=== PATIENT | female | born 1950 | race African-American/Black ===

== ENCOUNTER 2016-12-28 08:29 | Emergency (ER) | payer MEDICARE, MEDICAID ==
[~2016-12-28] VITALS: Ht 162.6 cm; Wt 84.0 kg
[~2016-12-28 08:29] MED LIST: IBUP-1636 PO; NAPR220C15 PO
[2016-12-28] MEDS ORDERED: CARI350T PO (08:39)
[2016-12-28] MEDS ORDERED: ONDANSETRON HCL 4MG/2ML VIAL IV ONE (09:30)
[2016-12-28] MEDS ORDERED: MORPHINE SULFATE 4 MG/ML CPJ (NOT FOR IM USE) IV ONE (09:30)
[2016-12-28] MEDS ORDERED: METHYLPREDNISOLONE SOD SUCC 125 MG/2 ML VIAL IV ONE (09:30)
[2016-12-28 11:10] VITALS: BP 129/70
== END 2016-12-28 11:24 | disposition home or self-care (01) ==
LOC: ER 09:02
DX: M06.9 Rheumatoid arthritis, unspecified (principal); R03.0 Elevated blood-pressure reading, without diagnosis of hypertension
CPT/HCPCS: 73030; 96374; 96375; 99284; J2270; J2405; J2930

== ENCOUNTER 2017-03-05 18:15 | Emergency (ER) | payer MEDICARE, MEDICAID ==
[~2017-03-05] VITALS: Ht 162.6 cm; Wt 83.0 kg
[~2017-03-05 18:15] MED LIST changes: +CARI350T PO
[2017-03-05] MEDS ORDERED: KETOROLAC 60MG/2ML VIAL IM ONE (23:30)
[2017-03-06 00:07] VITALS: BP 123/70
== END 2017-03-06 00:30 | disposition home or self-care (01) ==
LOC: ER 20:00
DX: M54.32 Sciatica, left side (principal); M19.90 Unspecified osteoarthritis, unspecified site; Z87.891 Personal history of nicotine dependence
CPT/HCPCS: 96372; 99283; J1885

== ENCOUNTER 2017-04-16 15:02 | Emergency (ER) | payer MEDICARE, OTHER ==
[~2017-04-16] VITALS: Ht 162.6 cm; Wt 86.0 kg
[2017-04-16 18:34] LABS: BASOPHILS % 0.7 % (0.0-2.0); EOSINOPHILS % 3.1 % (0.0-5.0); HEMATOCRIT. 35.3 % (36.0-48.0); HEMOGLOBIN. 11.7 g/dL (12.0-16.0); LYMPHOCYTES % 27.2 % (20.0-50.0); MEAN CORPUSCULAR HEMOGLOBIN 29.1 pg (28.0-32.0); MEAN CORPUSCULAR VOLUME 87.5 fL (81.0-99.0); MEAN PLATELET VOLUME 8.9 fl (7.4-10.4); MONOCYTES % 7.3 % (2.0-8.0); NEUTROPHILS % 61.7 % (40.0-76.0); PLATELET 199 x1000/uL (130-400); RED BLOOD CELL COUNT 4.03 mill/uL (4.2-5.4); RED CELL DISTRIBUTION WIDTH 15.7 % (11.6-14.6)
[2017-04-16 18:44] LABS: CARBON DIOXIDE 28 mEq/L (21-32); CHLORIDE 106 mEq/L (98-107)
[2017-04-16 18:57] LABS: CLARITY URINE CLEAR (CLEAR); COLOR URINE YELLOW (YELLOW); GLUCOSE URINE NEGATIVE (NEGATIVE); KETONES URINE NEGATIVE (NEGATIVE); LEUKOCYTE ESTERASE URINE TRACE (NEGATIVE); NITRITE URINE NEGATIVE (NEGATIVE); OCCULT BLOOD URINE NEGATIVE (NEGATIVE); PROTEIN URINE NEGATIVE (NEGATIVE); SPECIFIC GRAVITY URINE 1.007 (1.005-1.030); UROBILINOGEN URINE 0.2 E.U./dL (0.2-1.0)
[2017-04-16 19:06] LABS: *AMPHETAMINES SCREEN URINE NEGATIVE (NEGATIVE); *BARBITURATES SCREEN URINE NEGATIVE (NEGATIVE); *BENZODIAZEPINES SCREEN URINE NEGATIVE (NEGATIVE); *COCAINE SCREEN URINE NEGATIVE (NEGATIVE); CANNABINOID URINE SCREEN NEGATIVE (NEGATIVE); METHADONE URINE SCREEN NEGATIVE (NEGATIVE); OPIATES URINE SCREEN NEGATIVE (NEGATIVE); PHENCYCLIDINE URINE SCREEN NEGATIVE (NEGATIVE)
[2017-04-16 21:57] VITALS: BP 133/70
== END 2017-04-16 22:00 | disposition home or self-care (01) ==
LOC: ER 15:02
DX: R10.84 Generalized abdominal pain (principal); Z90.710 Acquired absence of both cervix and uterus; Z98.890 Other specified postprocedural states
CPT/HCPCS: 36415; 74176; 80048; 80076; 80305; 81001; 85025; 99285

== ENCOUNTER 2020-03-08 10:33 | Emergency (ER) | payer MEDICAID, MEDICARE ==
[~2020-03-08] VITALS: Ht 162.6 cm; Wt 82.0 kg
[~2020-03-08 10:33] MED LIST changes: -CARI350T PO; +GABA-290 PO; +HYDR-4009 PO; -IBUP-1636 PO; +LINA145C PO; -NAPR220C15 PO
[2020-03-08] MEDS ORDERED: ACETAMINOPHEN 325MG TABLET PO STA (11:33)
[2020-03-08] MEDS ORDERED: SODIUM CHLORIDE 0.9% 1,000 ML IV ONE (11:33)
[2020-03-08 11:45] LABS: CHLORIDE 110 mEq/L (98-107)
[2020-03-08 11:49] LABS: BASOPHILS % 0.5 % (0.0-2.0); EOSINOPHILS % 3.1 % (0.0-5.0); HEMATOCRIT. 34.8 % (36.0-48.0); HEMOGLOBIN. 11.4 g/dL (12.0-16.0); LYMPHOCYTES % 30.1 % (20.0-50.0); MEAN CORPUSCULAR HEMOGLOBIN 29.2 pg (28.0-32.0); MEAN CORPUSCULAR VOLUME 89.3 fL (81.0-99.0); MEAN PLATELET VOLUME 8.7 fl (7.4-10.4); MONOCYTES % 6.6 % (2.0-8.0); NEUTROPHILS % 59.7 % (40.0-76.0); PLATELET 234 x1000/uL (130-400); RED CELL DISTRIBUTION WIDTH 13.6 % (11.6-14.6)
[2020-03-08 13:26] VITALS: BP 136/77
== END 2020-03-08 13:29 | disposition home or self-care (01) ==
LOC: ER 10:33
DX: R51 Headache (principal); H53.8 Other visual disturbances; M19.90 Unspecified osteoarthritis, unspecified site; I10 Essential (primary) hypertension; W01.0XXA Fall on same level from slipping, tripping and stumbling without subsequent striking against object, initial encounter; Y93.84 Activity, sleeping; Y92.9 Unspecified place or not applicable; Z90.710 Acquired absence of both cervix and uterus; Z98.890 Other specified postprocedural states
CPT/HCPCS: 36415; 70450; 73502; 80053; 85025; 93005; 96360; 96361; 99285; J7030

== ENCOUNTER 2020-03-17 11:43 | Emergency (ER) | payer MEDICARE ==
[~2020-03-17] VITALS: Ht 162.6 cm; Wt 85.0 kg
[2020-03-17] MEDS ORDERED: MORPHINE SULFATE 4 MG/ML CPJ (NOT FOR IM USE) IV STA (12:17)
[2020-03-17] MEDS ORDERED: ONDANSETRON HCL 4MG/2ML INJ IV STA (12:17)
[2020-03-17 13:00] LABS: BASOPHILS % 0.4 % (0.0-2.0); EOSINOPHILS % 1.9 % (0.0-5.0); HEMATOCRIT. 34.5 % (36.0-48.0); HEMOGLOBIN. 11.2 g/dL (12.0-16.0); LYMPHOCYTES % 30.6 % (20.0-50.0); MEAN PLATELET VOLUME 8.9 fl (7.4-10.4); MONOCYTES % 7.2 % (2.0-8.0); NEUTROPHILS % 59.9 % (40.0-76.0); PLATELET 218 x1000/uL (130-400); RED BLOOD CELL COUNT 3.88 mill/uL (4.2-5.4); RED CELL DISTRIBUTION WIDTH 13.4 % (11.6-14.6)
[2020-03-17 13:06] LABS: CLARITY URINE CLEAR (CLEAR); COLOR URINE YELLOW (YELLOW); KETONES URINE NEGATIVE (NEGATIVE); LEUKOCYTE ESTERASE URINE NEGATIVE (NEGATIVE); NITRITE URINE NEGATIVE (NEGATIVE); OCCULT BLOOD URINE NEGATIVE (NEGATIVE); PH URINE 6.5 (4.5-8.0); PROTEIN URINE NEGATIVE (NEGATIVE); SPECIFIC GRAVITY URINE 1.007 (1.005-1.030); UROBILINOGEN URINE 0.2 E.U./dL (0.2-1.0)
[2020-03-17 13:09] LABS: PROTHROMBIN TIME 10.6 sec (9.6-11.0)
[2020-03-17 13:11] LABS: CHLORIDE 110 mEq/L (98-107)
[2020-03-17 14:05] VITALS: BP 146/75
== END 2020-03-17 14:05 | disposition home or self-care (01) ==
LOC: ER 11:43
DX: M19.90 Unspecified osteoarthritis, unspecified site (principal); R10.9 Unspecified abdominal pain
CPT/HCPCS: 36415; 74176; 80053; 81003; 83690; 85025; 85610; 93005; 96374; 96375; 99285; J2270; J2405

== ENCOUNTER 2020-03-18 13:07 | Emergency (ER) | payer MEDICARE ==
[~2020-03-18] VITALS: Ht 162.6 cm; Wt 73.0 kg
[2020-03-18 14:44] VITALS: BP 178/88
== END 2020-03-18 14:45 | disposition home or self-care (01) ==
LOC: ER 13:07
DX: M25.542 Pain in joints of left hand (principal); M06.9 Rheumatoid arthritis, unspecified; I10 Essential (primary) hypertension; Z90.710 Acquired absence of both cervix and uterus; Z98.890 Other specified postprocedural states
CPT/HCPCS: 99283

== ENCOUNTER 2020-04-06 13:33 | Emergency (ER) | payer MEDICARE ==
[~2020-04-06] VITALS: Ht 162.6 cm; Wt 90.0 kg
[2020-04-06 14:40] VITALS: BP 143/67
[2020-04-06] MEDS ORDERED: KETOROLAC 30MG/ML VIAL IM ONE (15:30)
== END 2020-04-06 17:10 | disposition home or self-care (01) ==
LOC: ER 13:33
DX: M06.9 Rheumatoid arthritis, unspecified (principal); I10 Essential (primary) hypertension; Z98.51 Tubal ligation status; Z90.710 Acquired absence of both cervix and uterus
CPT/HCPCS: 96372; 99283; J1885

== ENCOUNTER 2020-04-16 13:16 | Emergency (ER) | payer MEDICARE ==
[~2020-04-16] VITALS: Ht 162.6 cm; Wt 82.0 kg
[2020-04-16] MEDS ORDERED: LIDOCAINE HCL/EPINEPHRINE 1%-EPI 1:100,000 20 ML VIAL INFIL ONE (13:45)
[2020-04-16] MEDS ORDERED: BACITRACIN ZINC OINT UDPKT TOP ONE (14:15)
[2020-04-16] MEDS ORDERED: LIDOCAINE 1%/EPI 1:100,000 10 ML VIAL IJ NR (14:15)
[2020-04-16 14:18] VITALS: BP 140/68
== END 2020-04-16 14:40 | disposition home or self-care (01) ==
LOC: ER 13:16
DX: H60.02 Abscess of left external ear (principal); L72.3 Sebaceous cyst; I10 Essential (primary) hypertension; M19.90 Unspecified osteoarthritis, unspecified site; Z90.710 Acquired absence of both cervix and uterus; Z98.890 Other specified postprocedural states; Z98.51 Tubal ligation status
CPT/HCPCS: 99283; J3490

== ENCOUNTER 2020-10-10 20:11 | Emergency (ER) | payer MEDICARE, MEDICAID ==
[~2020-10-10] VITALS: Ht 162.6 cm; Wt 78.0 kg
[2020-10-10] MEDS ORDERED: HYDROCODONE/ACETAMINOPHEN 10/325MG TABLET PO ONE (20:45)
[2020-10-10] MEDS ORDERED: DEXAMETHASONE 10 MG/ML VIAL IM ONE (20:45)
[2020-10-10] MEDS ORDERED: KETOROLAC 60MG/2ML VIAL IM ONE (20:45)
[2020-10-10] MEDS ORDERED: P50 MT (21:43)
[2020-10-10 22:13] VITALS: BP 144/74
== END 2020-10-10 22:10 | disposition home or self-care (01) ==
LOC: ER 20:11
DX: M06.9 Rheumatoid arthritis, unspecified (principal); M54.30 Sciatica, unspecified side; I10 Essential (primary) hypertension; Z90.710 Acquired absence of both cervix and uterus; Z98.51 Tubal ligation status
CPT/HCPCS: 93005; 96372; 99284; J1100; J1885

== ENCOUNTER → 2020-11-14 | Outpatient (CLI) | payer MEDICARE, MEDICAID ==
[~2020-11-14] MED LIST changes: -LINA145C PO; +METH2.5T PO; +P50 MT
[2020-11-14 11:10] LABS: BASOPHILS % 0.4 % (0.0-2.0); EOSINOPHILS % 3.5 % (0.0-5.0); HEMATOCRIT. 34.2 % (36.0-48.0); HEMOGLOBIN. 11.3 g/dL (12.0-16.0); LYMPHOCYTES % 38.5 % (20.0-50.0); MEAN CORPUSCULAR HEMOGLOBIN 29.3 pg (28.0-32.0); MEAN CORPUSCULAR VOLUME 88.7 fL (81.0-99.0); MEAN PLATELET VOLUME 8.2 fl (7.4-10.4); MONOCYTES % 13.7 % (2.0-8.0); NEUTROPHILS % 43.9 % (40.0-76.0); PLATELET 225 x1000/uL (130-400); RED BLOOD CELL COUNT 3.85 mill/uL (4.2-5.4); RED CELL DISTRIBUTION WIDTH 13.9 % (11.6-14.6)
[2020-11-14 11:19] LABS: CLARITY URINE CLEAR (CLEAR); COLOR URINE YELLOW (YELLOW); KETONES URINE NEGATIVE (NEGATIVE); LEUKOCYTE ESTERASE URINE NEGATIVE (NEGATIVE); NITRITE URINE NEGATIVE (NEGATIVE); OCCULT BLOOD URINE NEGATIVE (NEGATIVE); PROTEIN URINE NEGATIVE (NEGATIVE); SPECIFIC GRAVITY URINE 1.013 (1.005-1.030); UROBILINOGEN URINE 0.2 E.U./dL (0.2-1.0)
[2020-11-14 11:23] LABS: CHLORIDE 106 mEq/L (98-107)
== END | disposition home or self-care (01) ==
LOC: LAB 10:29
PROVIDERS: ATTEND Surgery
DX: U07.1 COVID-19 (principal); I10 Essential (primary) hypertension
CPT/HCPCS: 36415; 80048; 81003; 85025; 87426

== ENCOUNTER 2021-05-08 05:15 | Emergency (ER) | payer MEDICARE, MEDICAID ==
[~2021-05-08] VITALS: Ht 162.6 cm; Wt 79.0 kg
[~2021-05-08 05:15] MED LIST changes: +P20 MT
[2021-05-08] MEDS ORDERED: DEXAMETHASONE 10 MG/ML VIAL IM ONE (05:45)
[2021-05-08] MEDS ORDERED: P50 PO (06:31)
[2021-05-08 07:52] VITALS: BP 107/53
== END 2021-05-08 07:54 | disposition home or self-care (01) ==
LOC: ER 05:15
DX: M06.812 Other specified rheumatoid arthritis, left shoulder (principal); M54.30 Sciatica, unspecified side; I10 Essential (primary) hypertension; Z90.710 Acquired absence of both cervix and uterus
CPT/HCPCS: 73030; 96372; 99283; J1100

== ENCOUNTER 2021-10-17 11:41 | Emergency (ER) | payer MEDICARE, MEDICAID ==
[~2021-10-17] VITALS: Ht 165.1 cm; Wt 75.0 kg
[~2021-10-17 11:41] MED LIST changes: +P50 PO
[2021-10-17 12:03] VITALS: BP 148/75
[2021-10-17] MEDS ORDERED: ACETAMINOPHEN WITH CODEINE 300/30MG TABLET PO ONE (14:00)
[2021-10-17] MEDS ORDERED: DEXAMETHASONE 4MG/ML 1ML VIAL IM ONE (14:30)
[2021-10-17] MEDS ORDERED: T3 PO (15:01)
== END 2021-10-17 15:15 | disposition home or self-care (01) ==
LOC: ER 11:41
DX: M17.0 Bilateral primary osteoarthritis of knee (principal); I10 Essential (primary) hypertension; M54.30 Sciatica, unspecified side; Z90.710 Acquired absence of both cervix and uterus; Z98.51 Tubal ligation status
CPT/HCPCS: 73562; 96372; 99283; J1100

== ENCOUNTER 2022-03-08 17:41 | Inpatient (IN) | payer MEDICARE, MEDICAID ==
[~2022-03-08] VITALS: Ht 162.6 cm; Wt 79.8 kg
[~2022-03-08 17:41] MED LIST changes: +T3 PO
[2022-03-08] MEDS ORDERED: ASPIRIN 325MG EC TABLET PO ONE (23:15)
[2022-03-08 23:46] LABS: BASOPHILS % 0.4 % (0.0-2.0); EOSINOPHILS % 3.3 % (0.0-5.0); HEMATOCRIT. 33.5 % (36.0-48.0); HEMOGLOBIN. 10.9 g/dL (12.0-16.0); LYMPHOCYTES % 41.4 % (20.0-50.0); MEAN CORPUSCULAR HEMOGLOBIN 29.5 pg (28.0-32.0); MEAN CORPUSCULAR VOLUME 90.6 fL (81.0-99.0); MEAN PLATELET VOLUME 8.2 fl (7.4-10.4); MONOCYTES % 5.5 % (2.0-8.0); NEUTROPHILS % 49.4 % (40.0-76.0); PLATELET 257 x1000/uL (130-400); RED CELL DISTRIBUTION WIDTH 15.2 % (11.6-14.6)
[2022-03-08 23:55] LABS: CHLORIDE 106 mEq/L (98-107)
[2022-03-09 09:53] VITALS: BP 123/44
[2022-03-09 10:00] VITALS: BP 123/44
[2022-03-09 12:00] VITALS: BP 129/48
[2022-03-09] MEDS ORDERED: DOCUSATE SODIUM 100MG CAPSULE PO PRN (12:00)
[2022-03-09] MEDS ORDERED: HYDROCODONE/ACETAMINOPHEN 5/325MG TABLET PO PRN (12:00)
[2022-03-09] MEDS ORDERED: LORAZEPAM 0.5MG TABLET PO PRN (12:00)
[2022-03-09] MEDS ORDERED: ONDANSETRON HCL 4MG/2ML INJ IV PRN (12:00)
[2022-03-09] MEDS ORDERED: IPRATROPIUM/ALBUTEROL 0.5-3(2.5)MG/3ML NEB HHN PRN (12:00)
[2022-03-09] MEDS ORDERED: CLONIDINE 0.1MG TABLET PO PRN (12:00)
[2022-03-09] MEDS ORDERED: ACETAMINOPHEN 325MG TABLET PO PRN ×2 (12:00)
[2022-03-09] MEDS ORDERED: NALOXONE HCL 0.4MG/ML VIAL IV PRN (12:15)
[2022-03-09] MEDS ORDERED: PANTOPRAZOLE 40MG DR TABLET PO SCH (13:45)
[2022-03-09 13:53] LABS: CLARITY URINE CLEAR (CLEAR); COLOR URINE YELLOW (YELLOW); KETONES URINE NEGATIVE (NEGATIVE); LEUKOCYTE ESTERASE URINE NEGATIVE (NEGATIVE); NITRITE URINE NEGATIVE (NEGATIVE); OCCULT BLOOD URINE NEGATIVE (NEGATIVE); PROTEIN URINE NEGATIVE (NEGATIVE); SPECIFIC GRAVITY URINE 1.008 (1.005-1.030); UROBILINOGEN URINE 0.2 E.U./dL (0.2-1.0)
[2022-03-09] MEDS: GABAPENTIN 400MG CAPSULE PO SCH ×2 (14:56→21:41)
[2022-03-09] MEDS: FOLIC ACID 1MG TABLET PO SCH (14:56)
[2022-03-09 16:00] VITALS: BP 132/58
[2022-03-09 20:00] VITALS: BP 126/54
[2022-03-10] VITALS: BP 124/46
[2022-03-10 04:00] VITALS: BP 96/37
[2022-03-10] MEDS: GABAPENTIN 400MG CAPSULE PO SCH ×2 (05:57→14:00)
[2022-03-10 06:54] LABS: BASOPHILS % 0.2 % (0.0-2.0); HEMATOCRIT. 32.9 % (36.0-48.0); HEMOGLOBIN. 10.7 g/dL (12.0-16.0); LYMPHOCYTES % 45.9 % (20.0-50.0); MEAN CORPUSCULAR HEMOGLOBIN 29.5 pg (28.0-32.0); MEAN CORPUSCULAR VOLUME 90.1 fL (81.0-99.0); MEAN PLATELET VOLUME 8.8 fl (7.4-10.4); MONOCYTES % 4.7 % (2.0-8.0); NEUTROPHILS % 46.2 % (40.0-76.0); PLATELET 241 x1000/uL (130-400); RED BLOOD CELL COUNT 3.65 mill/uL (4.2-5.4); RED CELL DISTRIBUTION WIDTH 14.9 % (11.6-14.6)
[2022-03-10 07:49] VITALS: BP 119/43
[2022-03-10] MEDS: FOLIC ACID 1MG TABLET PO SCH (08:36)
[2022-03-10 08:58] LABS: CHLORIDE 110 mEq/L (98-107)
[2022-03-10] MEDS ORDERED: PANTOPRAZOLE SODIUM 40 MG/VIAL IV SCH (09:00)
[2022-03-10] MEDS ORDERED: PANT40TA51 MT (10:00)
[2022-03-10] MEDS ORDERED: FOLI-43 PO (10:00)
[2022-03-10 10:46] VITALS: BP 119/43
[2022-03-10 11:57] VITALS: BP 120/76
[2022-03-10 16:17] VITALS: BP 118/67
[2022-03-13] MEDS ORDERED: METHOTREXATE SODIUM 2 . 5MG TABLET PO SCH (09:00)
== END 2022-03-10 18:01 | disposition home health service (06) | DRG 392 ==
LOC: ER 17:41 → EDBEDREQTM 03-09 03:26 → EDBEDREQ 03-09 03:26 → ENRESERV 03-09 06:30 → 6WST 03-09 09:36
PROVIDERS: ADMIT Internal Medicine; ATTEND Internal Medicine
DX: K29.70 Gastritis, unspecified, without bleeding (principal); D64.9 Anemia, unspecified; I10 Essential (primary) hypertension; J44.9 Chronic obstructive pulmonary disease, unspecified; M06.9 Rheumatoid arthritis, unspecified; M54.30 Sciatica, unspecified side; R79.89 Other specified abnormal findings of blood chemistry; Z79.899 Other long term (current) drug therapy; Z90.710 Acquired absence of both cervix and uterus
CPT/HCPCS: 36415; 71045; 80048; 80053; 81003; 83880; 84484; 85025; 93005; 93306; 99285; C9113

== ENCOUNTER 2023-12-06 17:04 | Emergency (ER) | payer MEDICARE, MEDICAID ==
[~2023-12-06] VITALS: Ht 165.1 cm; Wt 77.0 kg
[~2023-12-06 17:04] MED LIST changes: +FOLI-43 PO; +PANT40TA51 MT
[2023-12-06 17:06] VITALS: O2SAT 99
[2023-12-06] MEDS: HYDROCODONE/ACETAMINOPHEN 5/325MG TABLET PO ONE (17:49)
[2023-12-06 19:30] VITALS: BP 115/45; PULSE 69; RESP 15; TEMP 98.6
== END 2023-12-06 19:47 | disposition home or self-care (01) ==
LOC: ER 17:04
DX: G89.29 Other chronic pain (principal); M25.562 Pain in left knee; I10 Essential (primary) hypertension; Z98.51 Tubal ligation status; Z90.710 Acquired absence of both cervix and uterus; Z79.899 Other long term (current) drug therapy
CPT/HCPCS: 99283

== ENCOUNTER 2024-05-02 22:28 | Emergency (ER) | payer MEDICARE, MEDICAID ==
[~2024-05-02] VITALS: Ht 160 cm; Wt 82.0 kg
[2024-05-02 22:31] VITALS: O2SAT 99
[2024-05-03] MEDS: MORPHINE SULFATE 4 MG/ML INJ (FOR IV/IM USE) IM ONE ×2 (02:11→04:42)
[2024-05-03] MEDS ORDERED: CYCL10TA21 MT (03:35)
[2024-05-03] MEDS ORDERED: P20 MT (04:34)
[2024-05-03] MEDS: ACETAMINOPHEN 325MG TABLET PO ONE (04:41)
[2024-05-03 06:51] VITALS: BP 130/66; PULSE 79; RESP 20; TEMP 36.83628; O2SAT 99
== END 2024-05-03 06:52 | disposition home or self-care (01) ==
LOC: ER 22:28
DX: G89.29 Other chronic pain (principal); M79.602 Pain in left arm; Z90.710 Acquired absence of both cervix and uterus; Z79.899 Other long term (current) drug therapy; Z79.52 Long term (current) use of systemic steroids; M06.9 Rheumatoid arthritis, unspecified
CPT/HCPCS: 99285; 93005; 96372; J2270

== ENCOUNTER → 2025-03-01 | Day surgery (SDC) | payer MEDICARE, MEDICAID ==
[~2025-03-01] VITALS: Ht 162.6 cm; Wt 73.5 kg
[~2025-03-01] MED LIST changes: +ACETAMINOPHEN 1,000MG/100ML PREMIX IV PRN; +BACITRACIN 14GM TUBE TOP ONE; +BACL-141 PO; +BUPIVACAINE HCL/PF 0.5% (5MG/ML) 10ML ONE; +CYCL10TA21 MT; +ETOMIDATE 2MG/ML 10ML VIAL IV ONE; +FAMOTIDINE 20MG/2ML VIAL IV NR; +FAMOTIDINE 20MG/2ML VIAL IV PRN; +FENTANYL CITRATE/PF 50MCG/ML 2ML VIAL ONE; +GABA-1180 PO; +HYDR-4001 PO; +HYDRALAZINE 20MG/ML VIAL IV PRN; +IBUP-2030 PO; +LABETALOL 5MG/ML 4ML INJ IV PRN; +LACTATED RINGERS 1,000 ML IV SCH; +LIDOCAINE HCL/EPINEPHRINE 1%-EPI 1:100,000 20ML VIAL ONE; +LINA145C PO; +LORAZEPAM 2MG/ML UD SYRINGE IV PRN; +MEPERIDINE HCL/PF 25MG/ML CPJ IV PRN; +METOCLOPRAMIDE HCL 10MG/2ML VIAL ONE; +MIDAZOLAM HCL 2 MG/2 ML VIAL ONE; +OLME20TA68 PO; +ONDANSETRON HCL 4MG/2ML INJ IV PRN; +ONDANSETRON HCL 4MG/2ML INJ ONE; +PROPOFOL 200MG/20ML VIAL IV ONE
[2025-03-01 06:19] LABS: BASOPHILS % 0.3 % (0.0-2.0); EOSINOPHILS % 1.9 % (0.0-5.0); HEMATOCRIT. 34.1 % (36.0-48.0); HEMOGLOBIN. 11.2 g/dL (12.0-16.0); LYMPHOCYTES % 18.8 % (20.0-50.0); MEAN PLATELET VOLUME 8.3 fl (7.4-10.4); MONOCYTES % 6.0 % (2.0-8.0); NEUTROPHILS % 73.0 % (40.0-76.0); PLATELET 259 x1000/uL (130-400); RED BLOOD CELL COUNT 3.70 mill/uL (4.2-5.4); RED CELL DISTRIBUTION WIDTH 14.0 % (11.6-14.6)
[2025-03-01 06:29] LABS: CREATININE 0.8 mg/dL (0.6-1.0); UREA NITROGEN BLOOD 7 mg/dL (9-23)
[2025-03-01 06:31] LABS: INR 1.0
[2025-03-01] MEDS: HYDROMORPHONE HCL/PF 1MG/ML INJ IV PRN (08:46)
[2025-03-01] MEDS: ACETAMINOPHEN 1000MG/100ML 100 ML IV PRN (09:28)
[2025-03-01 10:28] VITALS: BP 100/56; PULSE 59; RESP 12
[2025-03-01] MEDS: ACETAMINOPHEN WITH CODEINE 300/30MG TABLET PO PRN (10:28)
[2025-03-01 10:31] LABS: CLARITY URINE CLEAR (CLEAR); COLOR URINE YELLOW (YELLOW); GLUCOSE URINE NEGATIVE (NEGATIVE); KETONES URINE NEGATIVE (NEGATIVE); PH URINE 6.5 (4.5-8.0); PROTEIN URINE NEGATIVE (NEGATIVE); SPECIFIC GRAVITY URINE 1.005 (1.005-1.030)
[2025-03-01 10:32] LABS: LEUKOCYTE ESTERASE URINE NEGATIVE (NEGATIVE); NITRITE URINE NEGATIVE (NEGATIVE); OCCULT BLOOD URINE NEGATIVE (NEGATIVE)
[2025-03-01 10:34] LABS: UROBILINOGEN URINE 0.2 E.U./dL (0.2-1.0)
== END | disposition home or self-care (01) ==
LOC: OR 05:40
PROVIDERS: ATTEND Surgery
DX: K64.9 Unspecified hemorrhoids (principal); I10 Essential (primary) hypertension; M06.9 Rheumatoid arthritis, unspecified; Z79.899 Other long term (current) drug therapy; Z79.01 Long term (current) use of anticoagulants; Z98.890 Other specified postprocedural states; Z82.49 Family history of ischemic heart disease and other diseases of the circulatory system
CPT/HCPCS: 46947; 88304; 80048; 81003; 85025; 85610; 85730; 36415; J3010; J0131; J0665; J3490; J1308; J2004; J2765; J2250; J2405; J2704; J1171